=== PATIENT | female | born 1960 | race Caucasian/White ===

== ENCOUNTER 2019-07-10 06:22 | Day surgery (SDC) | payer OTHER ==
[~2019-07-10] VITALS: Ht 152.4 cm; Wt 79.4 kg
[~2019-07-10 06:22] MED LIST: NO ACTIVE MEDS
[2019-07-10 07:29] VITALS: BP 133/87; PULSE 79; RESP 21
[2019-07-10] MEDS ORDERED: LIDOCAINE 4% SOLUTION 50 ML BTL ONE (07:32)
[2019-07-10] MEDS ORDERED: MIDAZOLAM 1 MG/ML 2 ML INJ ONE ×2 (08:31)
[2019-07-10] MEDS ORDERED: FENTAnyl 50 MCG/ML VIAL ONE (08:31)
[2019-07-10 08:52] VITALS: BP 127/76; PULSE 72; RESP 20
== END 2019-07-10 17:51 | disposition home or self-care (01) ==
LOC: GIL 06:22
PROVIDERS: ATTEND Internal Medicine Gastroenterology
DX: Z12.11 Encounter for screening for malignant neoplasm of colon (principal); K64.0 First degree hemorrhoids; K57.31 Diverticulosis of large intestine without perforation or abscess with bleeding; K21.0 Gastro-esophageal reflux disease with esophagitis
CPT/HCPCS: 43239; 45378; 88305; 88312; 88313; J2250; J3010; Z7610